=== PATIENT | male | born 1950 | race Caucasian/White ===

== ENCOUNTER 2025-03-08 11:36 | Inpatient (IN) | payer MEDICARE ==
[~2025-03-08] VITALS: Ht 170.2 cm; Wt 59.5 kg
[2025-03-08 12:34] LABS: BASOPHILS % (AUTO) 0.6 % (0.0-2.0); HEMATOCRIT 31.8 % (41-53); HEMOGLOBIN 10.7 g/dL (13.5-17.5); LYMPHOCYTES # (AUTO) 1.1 K/uL (1.0-4.8); LYMPHOCYTES % (AUTO) 12.3 % (22.0-44.0); MEAN CORPUSCULAR HEMOGLOBIN 29.6 pg (26.0-34.0); MEAN CORPUSCULAR HGB CONC 33.7 G/dL (31.0-37.0); MEAN CORPUSCULAR VOLUME 88 fL (80-100); MONOCYTES # (AUTO) 0.8 K/uL (0.1-1.0); MONOCYTES % (AUTO) 9.1 % (2.0-9.0); NEUTROPHILS # (AUTO) 6.5 K/uL (1.8-7.7); PLATELET COUNT (AUTO) 221 K/uL (150-450); RED BLOOD CELL COUNT(AUTO) 3.62 MIL/uL (4.50-5.90); RED CELL DISTRIBUTION WIDTH 14.4 % (11.5-14.5); WHITE BLOOD COUNT (AUTO) 8.8 K/uL (4.5-11.0)
[2025-03-08 12:41] LABS: ANION GAP 6 mmol/L (8-16); CALCIUM, TOTAL 8.9 mg/dL (8.8-10.5); CARBON DIOXIDE 29 mmol/L (22-29); CHLORIDE 106 mmol/L (98-107); CREATININE 1.11 mg/dL (0.60-1.30); GLOMERULAR FILTR. RATE CALC > 60 mL/min (>60); GLUCOSE,RANDOM 114 mg/dL (70-110); SODIUM SERUM 141 mmol/L (136-145); UREA NITROGEN, BLOOD 24 mg/dL (7-18)
[2025-03-08 12:46] LABS: ALBUMIN 2.8 g/dL (3.4-5.0); BILIRUBIN,DIRECT 0.3 mg/dL (0.00-0.20); TOTAL PROTEIN, SERUM 6.3 g/dL (6.4-8.2)
[2025-03-08 12:50] LABS: TROPONIN I-HIGH SENSITIVITY 8 ng/L (<76)
[2025-03-08 12:53] LABS: B-TYPE NATRIURETIC PEPTIDE 143 pg/mL (0-100)
[2025-03-08] MEDS: POTASSIUM CHLORIDE 20 MEQ ER TABLET PO ONE (15:30)
[2025-03-08] MEDS: CefTRIAXone 1 GM/DEXTROSE 50 ML IV ONE (15:30)
[2025-03-08] MEDS: AZITHROMYCIN 500 MG/NS 250 ML IV ONE (15:30)
[2025-03-08] MEDS ORDERED: BUPR-49 PO (16:06)
[2025-03-08] MEDS ORDERED: AMIO200 PO (16:06)
[2025-03-08] MEDS ORDERED: SERT-439 PO (16:06)
[2025-03-08] MEDS ORDERED: MIDO5TAB5 PO (16:06)
[2025-03-08] MEDS ORDERED: ASPI-1444 PO (16:08)
[2025-03-08] MEDS ORDERED: AMANL PO (16:08)
[2025-03-08] MEDS ORDERED: ATOR20TA65 PO (16:17)
[2025-03-08] MEDS ORDERED: CARB1TAB41 PO (16:17)
[2025-03-08] MEDS ORDERED: DROX100C2 PO (16:17)
[2025-03-08] MEDS ORDERED: TAMS0.4C94 PO (16:17)
[2025-03-08] MEDS ORDERED: TRAZ-252 PO (16:20)
[2025-03-08] MEDS ORDERED: TraZODone HCL 50 MG TABLET PO PRN (18:15)
[2025-03-08] MEDS ORDERED: FLUD.1 PO (18:20)
[2025-03-08] MEDS ORDERED: SERT-440 PO (18:21)
[2025-03-08] MEDS ORDERED: IPRATROPIUM BROMIDE 0.5 MG/2.5 ML NEB SOLUTION NEB PRN (18:30)
[2025-03-08] MEDS ORDERED: MAGNESIUM HYDROXIDE SUSPENSION 30 ML UDCUP PO PRN (18:30)
[2025-03-08] MEDS ORDERED: BISACODYL 10 MG RECTAL RECTAL SUPPOSITORY PR PRN (18:30)
[2025-03-08] MEDS ORDERED: HYDROCODONE/ACETAMINOPHEN 5-325 MG TABLET PO PRN (18:30)
[2025-03-08] MEDS ORDERED: MORPHINE SULFATE 2 MG/ML SYRINGE IVP PRN (18:30)
[2025-03-08] MEDS ORDERED: ONDANSETRON HCL 4 MG/2 ML VIAL IVP PRN (18:30)
[2025-03-08] MEDS ORDERED: ZOLPIDEM TARTRATE 5 MG TABLET PO PRN (18:30)
[2025-03-08] MEDS ORDERED: ACETAMINOPHEN 325 MG TABLET PO PRN (18:30)
[2025-03-08 18:40] VITALS: BP 135/78; PULSE 67; RESP 18; TEMP 97; O2SAT 96
[2025-03-08] MEDS ORDERED: SODIUM CHLORIDE 0.9% 500 ML IV ONE (18:41)
[2025-03-08] MEDS: MIDODRINE HCL 5 MG TABLET PO SCH (20:02)
[2025-03-08] MEDS: TAMSULOSIN HCL 0.4 MG CAPSULE PO SCH (20:02)
[2025-03-08] MEDS: DOCUSATE SODIUM 100 MG CAPSULE PO SCH (20:02)
[2025-03-08] MEDS: CARBIDOPA/LEVODOPA 25-100 MG ER TABLET PO SCH (20:03)
[2025-03-08] MEDS ORDERED: SODIUM CHLORIDE 3% 15 ML NEB SOLUTION NEB ONE (20:21)
[2025-03-08 20:30] VITALS: PULSE 75; RESP 20; O2SAT 97
[2025-03-08 23:42] VITALS: BP 133/68; PULSE 75; RESP 19; TEMP 98.2; O2SAT 95
[2025-03-08] MEDS: HEPARIN SODIUM,PORCINE 5,000 UNITS/ML VIAL SQ SCH (23:59)
[2025-03-09 04:13] VITALS: BP 131/111; PULSE 82; RESP 19; TEMP 98.3
[2025-03-09 07:13] LABS: BASOPHILS % (AUTO) 0.5 % (0.0-2.0); EOSINOPHILS % (AUTO) 3.9 % (1.0-6.0); HEMATOCRIT 31.5 % (41-53); HEMOGLOBIN 10.5 g/dL (13.5-17.5); LYMPHOCYTES # (AUTO) 1.7 K/uL (1.0-4.8); LYMPHOCYTES % (AUTO) 17.6 % (22.0-44.0); MEAN CORPUSCULAR HEMOGLOBIN 29.3 pg (26.0-34.0); MEAN CORPUSCULAR HGB CONC 33.3 G/dL (31.0-37.0); MEAN CORPUSCULAR VOLUME 88 fL (80-100); MONOCYTES # (AUTO) 0.8 K/uL (0.1-1.0); MONOCYTES % (AUTO) 8.6 % (2.0-9.0); NEUTROPHILS # (AUTO) 6.6 K/uL (1.8-7.7); NEUTROPHILS % (AUTO) 69.4 % (40.0-70.0); PLATELET COUNT (AUTO) 230 K/uL (150-450); RED BLOOD CELL COUNT(AUTO) 3.57 MIL/uL (4.50-5.90); RED CELL DISTRIBUTION WIDTH 14.5 % (11.5-14.5); WHITE BLOOD COUNT (AUTO) 9.5 K/uL (4.5-11.0)
[2025-03-09 07:45] LABS: ANION GAP 7 mmol/L (8-16); CALCIUM, TOTAL 8.5 mg/dL (8.8-10.5); CARBON DIOXIDE 28 mmol/L (22-29); CHLORIDE 107 mmol/L (98-107); CREATININE 1.04 mg/dL (0.60-1.30); GLOMERULAR FILTR. RATE CALC > 60 mL/min (>60); GLUCOSE,RANDOM 89 mg/dL (70-110); POTASSIUM 3.5 mmol/L (3.5-5.1); SODIUM SERUM 142 mmol/L (136-145); UREA NITROGEN, BLOOD 26 mg/dL (7-18)
[2025-03-09 08:13] VITALS: BP 131/66; PULSE 76; RESP 20; TEMP 98.2; O2SAT 95
[2025-03-09] MEDS: AMANTADINE HCL 50 MG/5 ML SYRUP ORAL.SYG PO SCH (08:49)
[2025-03-09] MEDS: ASPIRIN 81 MG DR TABLET PO SCH (08:49)
[2025-03-09] MEDS: SERTRALINE HCL 100 MG TABLET PO SCH (08:50)
[2025-03-09] MEDS: AMIODARONE HCL 200 MG TABLET PO SCH (08:50)
[2025-03-09] MEDS: ATORVASTATIN CALCIUM 20 MG TABLET PO SCH (08:50)
[2025-03-09] MEDS: PANTOPRAZOLE SODIUM 40 MG/VIAL IVP SCH (08:51)
[2025-03-09] MEDS: BuPROPion HCL XL 150 MG ER TABLET PO SCH (08:51)
[2025-03-09 09:34] LABS: HIV 1-2 SCREEN 4TH GEN W/RFLX Non Reactive (Non Reactive)
[2025-03-09] MEDS ORDERED: SODIUM CHLORIDE 3% 15 ML NEB SOLUTION NEB ONE (10:35)
[2025-03-09 12:00] VITALS: BP 118/79; PULSE 76; RESP 18; TEMP 98.1; O2SAT 92
[2025-03-09] MEDS: CefTRIAXone 1 GM/DEXTROSE 50 ML IV SCH (15:33)
[2025-03-09 15:43] VITALS: BP 136/93; PULSE 67; RESP 18; TEMP 97.9; O2SAT 93
[2025-03-09] MEDS: AZITHROMYCIN 500 MG/NS 250 ML IV SCH (17:14)
[2025-03-09 20:20] VITALS: BP 145/92; PULSE 71; RESP 18; TEMP 98.1; O2SAT 94
[2025-03-09 23:53] VITALS: BP 141/80; PULSE 70; RESP 18; TEMP 97.7; O2SAT 94
[2025-03-10] MEDS ORDERED: SODIUM CHLORIDE 3% 15 ML NEB SOLUTION NEB ONE ×2 (01:31→09:16)
[2025-03-10 03:53] VITALS: BP 151/92; PULSE 70; RESP 20; TEMP 98.4; O2SAT 94
[2025-03-10 16:00] VITALS: BP 146/88; PULSE 80; RESP 18; TEMP 98.1; O2SAT 94
[2025-03-10 16:17] LABS: MTB PCR w/Rif. Resistance-SPUT NOT DETECTED (Not Detectd)
[2025-03-10 20:21] VITALS: BP 133/77; PULSE 74; RESP 19; TEMP 98.4; O2SAT 94
[2025-03-10 20:53] LABS: MTB PCR w/Rif. Resistance-SPUT NOT DETECTED (Not Detectd)
[2025-03-11] VITALS (8 sets, daily range): BP systolic 138–171; BP diastolic 75–108; PULSE 71–80; RESP 17–20; TEMP 97.3–98.2; O2SAT 93–97
[2025-03-11] MEDS ORDERED: SODIUM CHLORIDE 3% 15 ML NEB SOLUTION NEB ONE ×2 (04:44→14:13)
[2025-03-11] MEDS: ALBUTEROL SULFATE 2.5 MG/0.5 ML NEB SOLUTION NEB PRN (04:48)
[2025-03-11 12:56] LABS: MTB PCR w/Rif. Resistance-SPUT NOT DETECTED (Not Detectd)
[2025-03-12 03:34] VITALS: BP 148/89; PULSE 78; RESP 19; TEMP 98.1; O2SAT 95
[2025-03-12 07:07] LABS: QUANTIFERON+,Mitogen Value 0.75 IU/mL; QUANTIFERON+,TB1 Antigen Value 0.01 IU/mL; QUANTIFERON, TB GOLD PLUS Negative (Negative)
[2025-03-12 12:18] VITALS: BP 131/69; PULSE 77; RESP 19; TEMP 98; O2SAT 98
[2025-03-12 16:30] VITALS: BP 143/98; PULSE 74; RESP 16; TEMP 98.2; O2SAT 95
[2025-03-12 19:36] VITALS: BP 150/74; PULSE 75; RESP 18; TEMP 98.1; O2SAT 94
[2025-03-13 04:48] VITALS: BP 147/83; PULSE 78; RESP 18; TEMP 98.4; O2SAT 95
[2025-03-13 07:30] VITALS: BP 160/92; PULSE 71; RESP 18; TEMP 98.1; O2SAT 96
[2025-03-13 16:26] LABS: BASOPHILS % (AUTO) 0.7 % (0.0-2.0); EOSINOPHILS % (AUTO) 3.4 % (1.0-6.0); HEMATOCRIT 36.5 % (41-53); HEMOGLOBIN 11.8 g/dL (13.5-17.5); LYMPHOCYTES # (AUTO) 1.4 K/uL (1.0-4.8); LYMPHOCYTES % (AUTO) 14.2 % (22.0-44.0); MEAN CORPUSCULAR HGB CONC 32.4 G/dL (31.0-37.0); MEAN CORPUSCULAR VOLUME 90 fL (80-100); MONOCYTES # (AUTO) 0.6 K/uL (0.1-1.0); MONOCYTES % (AUTO) 6.3 % (2.0-9.0); NEUTROPHILS # (AUTO) 7.3 K/uL (1.8-7.7); NEUTROPHILS % (AUTO) 75.4 % (40.0-70.0); PLATELET COUNT (AUTO) 314 K/uL (150-450); RED BLOOD CELL COUNT(AUTO) 4.08 MIL/uL (4.50-5.90); RED CELL DISTRIBUTION WIDTH 14.9 % (11.5-14.5); WHITE BLOOD COUNT (AUTO) 9.7 K/uL (4.5-11.0)
[2025-03-13 16:37] LABS: CALCIUM, TOTAL 9.2 mg/dL (8.8-10.5); CREATININE 1.2 mg/dL (0.60-1.30); POTASSIUM 4.2 mmol/L (3.5-5.1)
[2025-03-13 16:42] LABS: BILIRUBIN,TOTAL 0.5 mg/dL (0.1-1.0); TOTAL PROTEIN, SERUM 6.5 g/dL (6.4-8.2)
[2025-03-13] MEDS: AmLODIPine BESYLATE 5 MG TABLET PO ONE (18:01)
[2025-03-13] MEDS ORDERED: SODIUM CHLORIDE 0.9% 500 ML IV ONE (18:13)
[2025-03-13 19:05] VITALS: BP 129/71; PULSE 78; RESP 18; TEMP 98.1; O2SAT 95
[2025-03-14 04:09] VITALS: BP 138/72; PULSE 79; RESP 19; TEMP 98.3; O2SAT 96
[2025-03-14 08:01] VITALS: BP 155/83; PULSE 75; RESP 19; TEMP 98.2; O2SAT 95
[2025-03-14] MEDS ORDERED: SUMA100T21 PO (08:42)
[2025-03-14] MEDS: AmLODIPine BESYLATE 5 MG TABLET PO SCH (09:06)
[2025-03-14] MEDS ORDERED: SUMAtriptan SUCCINATE 100 MG TABLET PO PRN (09:45)
[2025-03-14 16:24] VITALS: BP 151/81; PULSE 75; RESP 19; TEMP 98.4; O2SAT 95
[2025-03-14 19:15] VITALS: BP 120/71; PULSE 80; RESP 18; TEMP 97.7; O2SAT 95
[2025-03-15 04:09] VITALS: BP 141/82; PULSE 73; RESP 18; TEMP 97.6; O2SAT 95
[2025-03-15 09:13] VITALS: BP 139/89; PULSE 77; RESP 18; TEMP 97.7; O2SAT 95
[2025-03-15 09:16] LABS: SPECIMENTYPE,BODY FLUID THORAV
[2025-03-15] MEDS ORDERED: AMLO-257 PO (11:09)
[2025-03-15] MEDS ORDERED: PANT-31 PO (11:11)
[2025-03-15] MEDS ORDERED: ACET-2247 PO (11:13)
[2025-03-15] MEDS ORDERED: BISA10SU11 PR (11:14)
[2025-03-15] MEDS ORDERED: ALBU2.5V39 NEB (11:14)
[2025-03-15] MEDS ORDERED: IPRA0.2S49 NEB (11:15)
[2025-03-15] MEDS ORDERED: AMOX-457 PO (11:17)
[2025-03-15 12:17] LABS: APPEARANCE,UNSPUN,BODY FLUID BLOODY (CLEAR)
[2025-03-15 12:18] LABS: APPEARANCE,SPUN,BODY FLUID TURBID (CLEAR); COLOR,BODY FLUID RED (LT YELLOW); TOTAL VOLUME,BODY FLUID 550 mL; WBC, BODY FLUID 1500 /cu. mm.
[2025-03-15 12:19] LABS: BASOPHILS,BODY FLUID 0 %; EOSINOPHILS,BF (ANAL) 0 %; LYMPHOCYTES,BODY FLUID 10 %; MONOCYTES,BODY FLUID 0 %; NEUTROPHILS,BODY FLUID 85 %
[2025-03-15 12:20] LABS: OTHER CELLS,BODY FLUID 5
[2025-03-15 18:08] VITALS: BP 138/74; PULSE 83; RESP 19; TEMP 97.9; O2SAT 96
[2025-03-16 14:07] LABS: TOTAL PROTEIN,BODY FLUID,REF 10.8 g/dL
== END 2025-03-15 20:15 | DRG 177 ==
LOC: EMS 11:38 → EDH 15:37 → 5N 18:15 → 6N 03-12 18:23
PROVIDERS: ADMIT Hospitalist; ATTEND Hospitalist
PROC: 0W993ZZ Drainage of Right Pleural Cavity, Percutaneous Approach (ICD-10-PCS; principal; 2025-03-15)
DX: J15.69 Pneumonia due to other Gram-negative bacteria (principal); E43 Unspecified severe protein-calorie malnutrition; J91.8 Pleural effusion in other conditions classified elsewhere; F32.A Depression, unspecified; G20.A1 Parkinson's disease without dyskinesia, without mention of fluctuations; I34.0 Nonrheumatic mitral (valve) insufficiency; N18.31 Chronic kidney disease, stage 3a; Z68.20 Body mass index [BMI] 20.0-20.9, adult; D64.9 Anemia, unspecified; E78.00 Pure hypercholesterolemia, unspecified; N40.0 Benign prostatic hyperplasia without lower urinary tract symptoms; G43.909 Migraine, unspecified, not intractable, without status migrainosus; E87.6 Hypokalemia; I48.0 Paroxysmal atrial fibrillation; I95.1 Orthostatic hypotension; Z79.899 Other long term (current) drug therapy; Z79.82 Long term (current) use of aspirin; Z78.9 Other specified health status
CPT/HCPCS: 32555; 71045; 71250; 76942; 80048; 80053; 80076; 82465; 82945; 83615; 83880; 83986; 84157; 84484; 85025; 86480; 87015; 87040; 87075; 87081; 87101; 87205; 87206; 87389; 87556; 88108; 88305; 89051; 93005; 94640; 99285; J0456; J0696; J1644; J2470; J7040; 36415-L1; 36415-TC; 87070; J7613

== ENCOUNTER 2025-03-16 11:20 | Emergency (ER) | payer MEDICARE ==
[~2025-03-16] VITALS: Ht 167.6 cm; Wt 57.7 kg
[~2025-03-16 11:20] MED LIST: ACET-2247 PO; ALBU2.5V39 NEB; AMANL PO; AMIO200 PO; AMLO-257 PO; AMOX-457 PO; ASPI-1444 PO; ATOR20TA65 PO; BISA10SU11 PR; BUPR-49 PO; CARB1TAB41 PO; IPRA0.2S49 NEB; PANT-31 PO; SERT-440 PO; SUMA100T21 PO; TAMS0.4C94 PO
[2025-03-16 11:37] VITALS: TEMP 98.3
[2025-03-16 12:24] VITALS: BP 139/80; PULSE 72; RESP 16; O2SAT 98
== END 2025-03-16 12:25 ==
LOC: EMS 11:20
DX: R62.7 Adult failure to thrive (principal); E78.00 Pure hypercholesterolemia, unspecified; Z88.1 Allergy status to other antibiotic agents; Z88.8 Allergy status to other drugs, medicaments and biological substances; Z79.82 Long term (current) use of aspirin; Z79.899 Other long term (current) drug therapy
CPT/HCPCS: 99283; Z7502